=== PATIENT | female | born 1965 | race Caucasian/White ===

== ENCOUNTER 2018-12-23 23:39 | Emergency (ER) | payer OTHER ==
[~2018-12-23] VITALS: Ht 157.5 cm; Wt 54.4 kg
[~2018-12-23 23:39] MED LIST: ACEBUTCAFT PO; ACET325 PO; ACET500; ADVIL; AMOX500; AMOX500 PO; ASCO500; CEPH500 PO; CIPR500 PO; CLIN300 PO; CODBUTASA PO; CYCL10 PO; Cleocin HCl300 MG PO; ESCI20; HORMONE PATCH; HYDACE5 PO; IBUP200; IBUP200 PO; IBUP600; IBUP600 PO; IBUP800; IBUP800 PO; LORA.5 PO; LORA1 PO; MULVITA; NAPR220; NAPR500 PO; Norco 10-325 T1 EACH PO; Norco 5-325 Ta1 EACH PO; OXYACE5T PO; PANT40 PO; PENVK500 PO; PHENA200 PO; POLTRIOPSO OU; PRED20 PO; PREG50; PROC10 PO; PROM25 PO; PSEU30 PO; RXCEPH500 PO; RXCLIN PO; RXHYDACE PO; RXOXYACE PO; RXPENVK250 PO; RXPHEN200 PO; RXPROM25 PO; SULTRIDS PO; TRAM50 PO; VICODIN; VICODIN 10/325; VICODIN 5-3001 EACH PO
== END 2018-12-24 03:10 | disposition home or self-care (01) ==
LOC: ER 23:39
DX: S70.01XA Contusion of right hip, initial encounter (principal); F17.200 Nicotine dependence, unspecified, uncomplicated; Z88.6 Allergy status to analgesic agent; Z79.899 Other long term (current) drug therapy; W01.0XXA Fall on same level from slipping, tripping and stumbling without subsequent striking against object, initial encounter
CPT/HCPCS: 72192; 73502; 96372; 99284-25; J3010

== ENCOUNTER 2022-08-16 16:43 | Emergency (ER) | payer OTHER ==
[~2022-08-16] VITALS: Ht 157.5 cm; Wt 61.2 kg
== END 2022-08-16 18:00 | disposition home or self-care (01) ==
LOC: ER 16:43
DX: K04.7 Periapical abscess without sinus (principal); F17.200 Nicotine dependence, unspecified, uncomplicated; Z88.6 Allergy status to analgesic agent
CPT/HCPCS: 99282

== ENCOUNTER 2024-11-06 10:43 | Emergency (ER) | payer OTHER ==
[~2024-11-06] VITALS: Ht 157.5 cm; Wt 61.2 kg
[2024-11-06 10:48] VITALS: BP 131/68
[2024-11-06] MEDS ORDERED: HYDR1TAB94 PO (13:33)
== END 2024-11-06 13:41 | disposition home or self-care (01) ==
LOC: ER 10:43
DX: S06.0XAA Concussion with loss of consciousness status unknown, initial encounter (principal); M54.2 Cervicalgia; M25.512 Pain in left shoulder; G43.909 Migraine, unspecified, not intractable, without status migrainosus; F17.210 Nicotine dependence, cigarettes, uncomplicated; V49.9XXA Car occupant (driver) (passenger) injured in unspecified traffic accident, initial encounter
CPT/HCPCS: 70450; 72125; 73030; 73060; 99284-25